=== PATIENT | male | born 1965 | race African-American/Black ===

== ENCOUNTER 2016-12-14 10:16 | Emergency (ER) | payer SELFPAY ==
[~2016-12-14] VITALS: Ht 172.7 cm; Wt 67.0 kg
[~2016-12-14 10:16] MED LIST: PENI500T PO; TYLE3 PO; Z.0.NO CURRENT MEDS
[2016-12-14 10:19] VITALS: BP 136/85; PULSE 85; RESP 20; TEMP 98; O2SAT 100
--- NOTE | 2016-12-14 10:40 | PD ---
HPI Chief Complaint: Skin Problem Time Seen by Provider: 10:37 Travel History International Travel<30 days: No Contact w/Intl Traveler<30days: No Traveled to known affect area: No History of Present Illness HPI 51-year-old male presents emergency department with complaint of right foot pain , swelling, redness after a possible insect bite to the top of his foot on Wednesday. Denies fever, vomiting. Denies paresthesias, loss of sensation, decreased range of motion, decreased strength to the affected extremity. Unknown tetanus status. Has not taken any medications or tried any treatments to alleviate his symptoms. No known allergies. Has no medical complaints. No other modifying factors or associated signs and symptoms. PFSH Past Medical History Tetanus Vaccination: Unknown Past Surgical History Surgical History: No Previous Surgery Social History Alcohol Use: Yes Tobacco Use: Yes Substance Use: No Allergies-Medications (Allergen,Severity, Reaction): Coded Allergies: No Known Allergies (Verified , 12/14/16) Reported Meds & Prescriptions Reported Meds & Active Scripts Active Deltasone (Prednisone) 20 Mg Tab 40 Mg PO DAILY 5 Days Ibuprofen 800 Mg Tab 800 Mg PO Q6HR PRN Bactrim DS (Sulfamethoxazole-Trimethoprim) 800-160 Mg Tab 1 Tab PO BID 10 Days Keflex (Cephalexin) 500 Mg Cap 500 Mg PO Q6H 10 Days Review of Systems Except as stated in HPI: all other systems reviewed are Neg Physical Exam Narrative GENERAL: Well-nourished, well-developed female patient, in no acute distress; afebrile, nontoxic-appearing SKIN: Warm and dry. Right foot is edematous, erythematous, and with warmth to touch; there is an area to the dorsal aspect of the midfoot that could be consistent with a possible insect bite. Right lower extremity supple and nontender 2+ pedal pulse and sensory intact. No lymphangitis noted. HEAD: Atraumatic. Normocephalic. EYES: Pupils equal and round. No scleral icterus. No injection or drainage. ENT: Mucosa pink and moist. Airway patent. NECK: Trachea midline. CARDIOVASCULAR: Regular rate. RESPIRATORY: No accessory muscle use. GASTROINTESTINAL: Flat. MUSCULOSKELETAL: No obvious deformities. No clubbing. No cyanosis. No edema. NEUROLOGICAL: Awake and alert. Oriented 3. No obvious cranial nerve deficits. Motor grossly within normal limits. Normal speech. PSYCHIATRIC: Appropriate mood and affect; insight and judgment normal. Data Data Last Documented VS Vital Signs Date Time Temp Pulse Resp B/P Pulse Ox O2 Delivery O2 Flow Rate FiO2 12/14/16 10:19 98.0 85 20 136/85 100 Room Air Orders Foot, Complete (Tyl2pyf) (12/14/16 10:35) Ibuprofen (Motrin) (12/14/16 10:45) Tetanus/Diphtheria Tox Adult (Tetanus/Di (12/14/16 10:45) Ice/Cold Pack (12/14/16 10:35) Wound Culture And Gram Stain (12/14/16 10:40) MDM Medical Decision Making Medical Screen Exam Complete: Yes Emergency Medical Condition: Yes Medical Record Reviewed: Yes Differential Diagnosis Infected insect bite, cellulitis, osteomyelitis Narrative Course 51-year-old male with cellulitis of the right foot. I will x-ray the right foot to rule out osteomyelitis. Secondary to a possible insect bite. Tetanus updated in the ER. Right foot x-ray ordered. 1124: Last 24 hours Impressions Foot X-Ray 12/14/16 1035 Signed Impressions: Service Date/Time: Wednesday, December 14, 2016 10:56 - CONCLUSION: Chronic changes without fracture or signs of osteomyelitis. Daisha Doherty MD Keflex, Bactrim, Deltasone prescribed for home. Crutches provided for support. Instructed patient to follow up with primary care provider. Patient verbalizes understanding and agreement with treatment plan. Patient is medically cleared and stable for discharge. Discussed reasons to return to the emergency department. Patient agrees with treatment plan. The patients vital signs are stable and the patient is stable for outpatient follow-up and treatment. Patient discharged home, stable and in no acute distress. Diagnosis Primary Impression: Cellulitis of right foot Referrals: Primary Care Physician Patient Instructions: Cellulitis (ED), General Instructions Departure Forms: Tests/Procedures, Work Release Enter return to work date: Dec 17, 2016 Additional Instructions: Complete full course of antibiotics Warm compresses to the affected area Keep area clean and dry Ibuprofen or Tylenol as directed and as needed for pain and inflammation Follow-up with primary care provider Return to emergency department immediately with worsening of symptoms Med/Other Pt SpecificInfo: Prescription(s) given Scripts Prednisone (Deltasone)20 Mg Tab40 Mg PO DAILY 5 Days Ref 0 Prov:Brianda Arzola 12/14/16 Ibuprofen 800 Mg Fic994 Mg PO Q6HR PRN (PAIN) #30 TAB Ref 0 Prov:Brianda Arzola 12/14/16 Sulfamethoxazole-Trimethoprim (Bactrim DS)800-160 Mg Tab1 Tab PO BID 10 Days Ref 0 Prov:Brianda Arzola 12/14/16 Cephalexin (Keflex)500 Mg Pss171 Mg PO Q6H 10 Days Ref 0 Prov:Brianda Arzola 12/14/16 Disposition: 01 DISCHARGE HOME Condition: Stable Brianda Arzola Dec 14, 2016 10:40
[2016-12-14] MEDS ORDERED: IBUPROFEN 800 MG TAB PO ONE (10:45)
[2016-12-14] MEDS ORDERED: TETANUS/DIPHTHERIA TOXOID ADULT 0.5 ML VIAL IM ONE (10:45)
--- NOTE | 2016-12-14 11:11 | RADRPT ---
EXAM DATE/TIME: 12/14/2016 10:56 [facility] COMPARISON: No previous studies available for comparison. INDICATIONS : Right foot pain and swelling. Possible osteomyelitis. No prior trauma. MEDICAL HISTORY : None. SURGICAL HISTORY : None. ENCOUNTER: Initial ACUITY: 3 days PAIN SCORE: 8/10 LOCATION: Right foot. FINDINGS: No definite fractures, or dislocations are identified. No definite lytic or sclerotic lesion is seen . There is significant loss of the articular cartilage of the second PIP joint and to a lesser degree second third fourth DIP joints due to chronic degenerative change. Slight soft tissue swelling is pr esent without signs of osteomyelitis. CONCLUSION: Chronic changes without fracture or signs of osteomyelitis. Daisha Doherty MD on December 14, 2016 at 11:07 Board Certified Radiologist. This report was verified electronically.
[2016-12-14] MEDS ORDERED: PRED-503 PO (11:26)
[2016-12-14] MEDS ORDERED: IBUP800T23 PO (11:26)
[2016-12-14] MEDS ORDERED: BACT800T5 PO (11:26)
[2016-12-14] MEDS ORDERED: CEPH-460 PO (11:26)
== END 2016-12-14 11:58 | disposition home or self-care (01) ==
LOC: NEPD 10:16
DX: L03.115 Cellulitis of right lower limb (principal); Z79.899 Other long term (current) drug therapy; Z72.0 Tobacco use; Z23 Encounter for immunization
CPT/HCPCS: 73630; 86403; 87070; 90471; 90714

== ENCOUNTER 2017-11-02 10:54 | Emergency (ER) | payer SELFPAY ==
[~2017-11-02] VITALS: Ht 180.3 cm; Wt 66.0 kg
[~2017-11-02 10:54] MED LIST changes: +BACT800T5 PO; +CEPH-460 PO; +IBUP1TAB7 PO; -PENI500T PO; +PRED-503 PO; -TYLE3 PO; -Z.0.NO CURRENT MEDS
[2017-11-02 11:02] VITALS: BP 136/85; PULSE 84; RESP 18; TEMP 98.2; O2SAT 99
--- NOTE | 2017-11-02 11:09 | PD ---
HPI Chief Complaint: Eye Problems/Injury Time Seen by Provider: 11:08 Travel History International Travel<30 days: No Contact w/Intl Traveler<30days: No Traveled to known affect area: No History of Present Illness HPI 52-year-old -[place] male presents emergency department with bilateral eye discomfort, burning, and drainage since barbecuing yesterday, and getting " a lot of smoke in his eyes". Patient states his eyes were somewhat goopy this morning, and his vision is mildly blurry. Pain is about a 6 out of 10. He denies any other symptoms. He has no known drug allergies. [facility] Past Medical History Medical History: Denies Significant Hx Tetanus Vaccination: < 5 Years Influenza Vaccination: No Past Surgical History Surgical History: No Previous Surgery Social History Alcohol Use: Yes Tobacco Use: Yes (<1 PPD) Substance Use: No Allergies-Medications (Allergen,Severity, Reaction): Coded Allergies: No Known Allergies (Verified Adverse Reaction, Unknown, 11/02/17) Reported Meds & Prescriptions Reported Meds & Active Scripts Active No Active Prescriptions or Reported Medications Review of Systems Except as stated in HPI: all other systems reviewed are Neg General / Constitutional: No: Fever Eyes: Positive: Blurred Vision, Photophobia, Drainage, Redness, Pain, Tearing ( 6 out of 10), No: Diploplia, Foreign Body Sensation, Blind Spots, Visual changes , Blindness HENT: No: Headaches, Vertigo, Lightheadedness, Sore Throat, Rhinitis, Rhinorrhea, Congestion, Nosebleed, Neck Stiffness, Neck Pain, Dental Difficulties, Earache Cardiovascular: No: Chest Pain or Discomfort Respiratory: No: Shortness of Breath Gastrointestinal: No: Abdominal Pain Genitourinary: No: Dysuria Musculoskeletal: No: Pain Skin: No Rash Neurologic: No: Weakness Psychiatric: No: Depression Endocrine: No: Polydipsia Hematologic/Lymphatic: No: Easy Bruising Physical Exam Narrative GENERAL: Patient appears in mild distress. SKIN: Warm and dry. Normal color. Normal turgor per HEAD: Atraumatic. Normocephalic. EYES: Pupils equal and round. No scleral icterus. Moderate bilateral conjunctival injection in tearing drainage. No corneal abnormalities noted ENT: No nasal bleeding or discharge. Mucous membranes pink and moist. Pharynx is clear. Airways patent NECK: Trachea midline. Supple and nontender CARDIOVASCULAR: Regular rate and rhythm. RESPIRATORY: No accessory muscle use. Clear to auscultation. Breath sounds equal bilaterally. MUSCULOSKELETAL: Extremities without clubbing, cyanosis, or edema. No obvious deformities. NEUROLOGICAL: Awake and alert. No obvious cranial nerve deficits. Motor grossly within normal limits. Five out of 5 muscle strength in the arms and legs. Normal speech. PSYCHIATRIC: Appropriate mood and affect; insight and judgment normal. Data Data Last Documented VS Vital Signs Date Time Temp Pulse Resp B/P (MAP) Pulse Ox O2 Delivery O2 Flow Rate FiO2 11/02/17 11:02 98.2 84 18 136/85 (102) 99 MDM Medical Decision Making Medical Screen Exam Complete: Yes Emergency Medical Condition: Yes Differential Diagnosis Chemical conjunctivitis. Bacterial conjunctivitis. Scleral burn Narrative Course Patient is going to be treated with neomycin/polymyxin/dexamethasone ophthalmic drops every 4 hours while awake for the next 5 days. Patient is given a note for work. Patient to follow-up as needed. Diagnosis Primary Impression: Acute conjunctivitis, bilateral Qualified Codes: H10.213 - Acute toxic conjunctivitis, bilateral Patient Instructions: General Instructions, How to Use Eye Drops (ED) Departure Forms: Work Release Enter return to work date: November 03, 2017 Additional Instructions: Patient is going to be treated with neomycin/polymyxin/dexamethasone ophthalmic drops every 4 hours while awake for the next 5 days. Patient is given a note for work. Patient to follow-up as needed. Scripts Puhfaokj-Fihjkcwfn-Rxtrywafinpov Opth Drops (Yvtceynm-Zoamkamrn-Cwmdvzliisjsk Opth Drops) 3.5-10,000-0.1 Mg-Units-% Susp 1 DROP EACH EYE Q4H for Infection for 5 Days, #1 BOTTLE 0 Refills Prov: Rc Barger MD 11/02/17 Disposition: 01 DISCHARGE HOME Condition: Stable Kieran Munguia November 02, 2017 11:09
[2017-11-02] MEDS ORDERED: NEOM0.1S4 EACH EYE (11:11)
== END 2017-11-02 11:33 | disposition home or self-care (01) ==
LOC: NEPK 10:54
DX: H10.213 Acute toxic conjunctivitis, bilateral (principal); F17.210 Nicotine dependence, cigarettes, uncomplicated
CPT/HCPCS: 99283